=== PATIENT | female | born 1965 | race Hispanic/Latino ===

== ENCOUNTER 2022-07-25 14:57 | Inpatient (IN) | payer OTHER ==
[~2022-07-25] VITALS: Ht 160 cm; Wt 77.7 kg
[2022-07-25 18:52] LABS: BASOPHILS % (AUTO) 0.2 % (0.0-5.0); HEMATOCRIT 40.3 % (36-48); LYMPHOCYTES % (AUTO) 10.5 % (21.0-51.0); MEAN CORPUSCULAR HEMOGLOBIN 29.5 pg (27.0-33.0); MEAN CORPUSCULAR HGB CONC 32.8 g/dL (32.0-36.0); MEAN CORPUSCULAR VOLUME 90.2 fL (79-99); MONOCYTES % (AUTO) 4.6 % (3.0-13.0); NEUTROPHILS % (AUTO) 84.4 % (40.0-77.0); PLATELET COUNT (AUTO) 157 K/uL (130-400); RED BLOOD CELL COUNT(AUTO) 4.47 MIL/uL (4.00-5.50); WHITE BLOOD COUNT (AUTO) 12.1 K/uL (4.8-10.8)
[2022-07-25] MEDS ORDERED: MORPHINE 4 MG SYG IM ONE (19:00)
[2022-07-25 19:10] LABS: ALBUMIN 3.7 g/dL (3.5-5.0); CREATININE 0.8 mg/dL (0.5-1.5); POTASSIUM 3.4 mmol/L (3.5-5.1); TOTAL PROTEIN, SERUM 7.7 g/dL (6.0-8.3)
[2022-07-25] MEDS ORDERED: MORPHINE 2 MG SYG ONE (22:58)
[2022-07-25] MEDS ORDERED: MORPHINE 2 MG SYG IVP ONE (23:00)
[2022-07-26] VITALS (7 sets, daily range): BP systolic 118–152; BP diastolic 73–81
[2022-07-26] MEDS ORDERED: ACETAMINOPHEN 325 MG TAB PO PRN ×2 (01:00)
[2022-07-26] MEDS ORDERED: MORPHINE 2 MG SYG IV PRN (01:00)
[2022-07-26] MEDS ORDERED: ONDANSETRON 4MG INJ IV PRN (01:00)
[2022-07-26] MEDS: 0.9%NACL 1000ML 1,000 ML IV SCH ×4 (02:39→21:51)
[2022-07-26] MEDS ORDERED: LOSA1TAB37 PO (04:15)
[2022-07-26] MEDS ORDERED: METF-445 PO (04:15)
[2022-07-26] MEDS ORDERED: TRAM50TA4 PO (04:17)
[2022-07-26] MEDS: INSULIN HUMULIN R 100 UNIT/ML 3ML SQ SCH ×4 (06:37→21:10)
[2022-07-26] MEDS: FAMOTIDINE 20MG VIAL IV SCH ×2 (08:19→21:05)
[2022-07-26] MEDS: HYDROCODONE/ACETAMINOPHEN 5/325 MG TAB PO PRN ×2 (08:19→18:18)
[2022-07-26 11:58] LABS: HEMOGLOBIN A1C 12.8 % (4.0-6.0)
[2022-07-26 12:10] LABS: CREATININE 0.5 mg/dL (0.5-1.5); POTASSIUM 3.1 mmol/L (3.5-5.1); THYROID STIMULATING HORMONE 0.77 uIU/mL (0.36-3.74)
[2022-07-26] MEDS ORDERED: LOSARTAN 25 MG TABLET PO ONE (20:30)
[2022-07-26] MEDS: INSULIN GLARGINE 100 UNITS/ML 10 ML VIAL SQ SCH (21:10)
[2022-07-27] MEDS: HYDROCODONE/ACETAMINOPHEN 5/325 MG TAB PO PRN ×3 (02:11→20:26)
[2022-07-27 03:58] VITALS: BP 134/76
[2022-07-27 04:48] LABS: BASOPHILS % (AUTO) 0.4 % (0.0-5.0); EOSINOPHILS % (AUTO) 0.8 % (0.0-8.0); HEMATOCRIT 33.6 % (36-48); LYMPHOCYTES % (AUTO) 44.1 % (21.0-51.0); MEAN CORPUSCULAR HEMOGLOBIN 29.4 pg (27.0-33.0); MEAN CORPUSCULAR HGB CONC 32.7 g/dL (32.0-36.0); MEAN CORPUSCULAR VOLUME 89.8 fL (79-99); MONOCYTES % (AUTO) 9.3 % (3.0-13.0); NEUTROPHILS % (AUTO) 45.2 % (40.0-77.0); PLATELET COUNT (AUTO) 146 K/uL (130-400); RED BLOOD CELL COUNT(AUTO) 3.74 MIL/uL (4.00-5.50); RED CELL DISTRIBUTION WIDTH 13.2 % (11.0-15.5); WHITE BLOOD COUNT (AUTO) 8.3 K/uL (4.8-10.8)
[2022-07-27 05:09] LABS: ALBUMIN 2.9 g/dL (3.5-5.0); CREATININE 0.5 mg/dL (0.5-1.5); MAGNESIUM 1.9 mg/dL (1.80-2.40); TOTAL PROTEIN, SERUM 6.3 g/dL (6.0-8.3)
[2022-07-27] MEDS: INSULIN HUMULIN R 100 UNIT/ML 3ML SQ SCH ×4 (06:24→20:17)
[2022-07-27 08:00] VITALS: BP 144/84
[2022-07-27] MEDS: LOSARTAN 25 MG TABLET PO SCH (11:36)
[2022-07-27] MEDS: FAMOTIDINE 20MG VIAL IV SCH ×2 (11:36→19:44)
[2022-07-27 12:00] VITALS: BP 153/77
[2022-07-27 16:00] VITALS: BP 126/72
[2022-07-27] MEDS: INSULIN GLARGINE 100 UNITS/ML 10 ML VIAL SQ SCH ×2 (20:17)
[2022-07-27 20:37] VITALS: BP 136/79
[2022-07-28] VITALS (27 sets, daily range): BP systolic 92–145; BP diastolic 50–80
[2022-07-28 05:47] LABS: BASOPHILS % (AUTO) 0.4 % (0.0-5.0); EOSINOPHILS % (AUTO) 0.7 % (0.0-8.0); HEMATOCRIT 31.8 % (36-48); LYMPHOCYTES % (AUTO) 36.5 % (21.0-51.0); MEAN CORPUSCULAR HEMOGLOBIN 28.9 pg (27.0-33.0); MEAN CORPUSCULAR VOLUME 87.6 fL (79-99); MONOCYTES % (AUTO) 7.8 % (3.0-13.0); NEUTROPHILS % (AUTO) 54.3 % (40.0-77.0); PLATELET COUNT (AUTO) 151 K/uL (130-400); RED BLOOD CELL COUNT(AUTO) 3.63 MIL/uL (4.00-5.50); RED CELL DISTRIBUTION WIDTH 13.3 % (11.0-15.5); WHITE BLOOD COUNT (AUTO) 7.6 K/uL (4.8-10.8)
[2022-07-28 06:01] LABS: ALBUMIN 2.8 g/dL (3.5-5.0); CREATININE 0.5 mg/dL (0.5-1.5); POTASSIUM 3.3 mmol/L (3.5-5.1); TOTAL PROTEIN, SERUM 6.4 g/dL (6.0-8.3)
[2022-07-28] MEDS: INSULIN HUMULIN R 100 UNIT/ML 3ML SQ SCH ×4 (06:05→19:43)
[2022-07-28] MEDS: POTASSIUM CHLORIDE 10% ELIXIR 20 MEQ/15 ML UDCUP PO PRN ×3 (09:00→18:20)
[2022-07-28] MEDS: LOSARTAN 25 MG TABLET PO SCH (09:33)
[2022-07-28] MEDS: FAMOTIDINE 20MG VIAL IV SCH ×2 (09:33→19:34)
[2022-07-28] MEDS ORDERED: KCL 20 MEQ ERTAB PO PRN (11:00)
[2022-07-28] MEDS ORDERED: LIDOCAINE PF 100MG/5ML (2%) SYRINGE 5ML ONE (14:58)
[2022-07-28] MEDS ORDERED: PROPOFOL 10 MG/ML 20ML VIAL IV ONE (14:59)
[2022-07-28] MEDS ORDERED: ROCURONIUM 10MG/1ML SYR 10 MG/ML ML ONE (14:59)
[2022-07-28] MEDS ORDERED: MIDAZOLAM HCL 1 MG/ML 2ML VIAL ONE (14:59)
[2022-07-28] MEDS ORDERED: FENTANYL CITRATE PF 50 MCG/1 ML 2ML VIAL ONE (14:59)
[2022-07-28] MEDS ORDERED: CEFAZOLIN SODIUM 1 GM VIAL ONE (15:33)
[2022-07-28] MEDS ORDERED: FENTANYL CITRATE PF 50 MCG/1 ML 5ML AMP IV ONE (15:45)
[2022-07-28] MEDS ORDERED: DEXAMETHASONE SOD PHOSPHATE 4 MG/ML 1ML VIAL ONE (15:54)
[2022-07-28] MEDS ORDERED: ONDANSETRON 4MG INJ ONE (15:55)
[2022-07-28] MEDS ORDERED: ROPIVACAINE 0.5% 5MG/ML 30ML IJ ONE (16:12)
[2022-07-28] MEDS ORDERED: GLYCOPYRROLATE 1 MG/5 ML SYRINGE ONE (16:23)
[2022-07-28] MEDS ORDERED: NEOSTIGMINE 5MG/5ML SYR IV ONE (16:23)
[2022-07-28] MEDS ORDERED: HYDROMORPHONE 1 MG INJ ONE (17:19)
[2022-07-28] MEDS: HYDROCODONE/ACETAMINOPHEN 5/325 MG TAB PO PRN (19:34)
[2022-07-28] MEDS: INSULIN GLARGINE 100 UNITS/ML 10 ML VIAL SQ SCH ×2 (19:42→19:43)
[2022-07-29 04:00] VITALS: BP 87/47
[2022-07-29] MEDS: INSULIN HUMULIN R 100 UNIT/ML 3ML SQ SCH ×2 (05:39→11:55)
[2022-07-29 08:00] VITALS: BP 98/50
[2022-07-29] MEDS: HYDROCODONE/ACETAMINOPHEN 5/325 MG TAB PO PRN ×2 (08:38→14:23)
[2022-07-29] MEDS: LOSARTAN 25 MG TABLET PO SCH (08:38)
[2022-07-29] MEDS: FAMOTIDINE 20MG VIAL IV SCH (08:38)
[2022-07-29 12:00] VITALS: BP 105/48
== END 2022-07-29 15:44 | disposition home or self-care (01) | DRG 493 ==
LOC: EDH 14:57 → EDBD 14:58 → EDHIP 14:58 → UNDOADMIN 14:58 → 4AH 07-26 00:57 → EDH 07-26 03:40 → 4AH 07-26 04:00
PROVIDERS: ADMIT Hospitalist; ATTEND Hospitalist
PROC: 0PHF06Z Insertion of Intramedullary Internal Fixation Device into Right Humeral Shaft, Open Approach (ICD-10-PCS; 2022-07-28)
PROC: 0PH Upper Bones, Insertion (ICD-10-PCS; principal; 2022-07-28 15:00)
DX: S42.341A Displaced spiral fracture of shaft of humerus, right arm, initial encounter for closed fracture (principal); E87.1 Hypo-osmolality and hyponatremia; W18.30XA Fall on same level, unspecified, initial encounter; E11.65 Type 2 diabetes mellitus with hyperglycemia; G43.909 Migraine, unspecified, not intractable, without status migrainosus; I10 Essential (primary) hypertension; S42.201A Unspecified fracture of upper end of right humerus, initial encounter for closed fracture; W18.39XA Other fall on same level, initial encounter; Y93.89 Activity, other specified; Y92.89 Other specified places as the place of occurrence of the external cause; Y99.8 Other external cause status
CPT/HCPCS: 36415; 70450; 73030; 73060; 80048; 80053; 82948; 83036; 83735; 84443; 84703; 85025; 87635; 93306; 93356; C9803; G0378; J0690; J1100; J1170; J1815; J2001; J2250; J2270; J2405; J2704; J2710; J2795; J3010; J3490; J7030